=== PATIENT | male | born 1955 | race Caucasian/White ===

== ENCOUNTER 2022-06-08 09:20 | Outpatient (CLI) | payer MEDICARE, SELFPAY ==
--- NOTE | 2022-06-08 09:38 | ECG_ITS ---
Measurements Intervals [place] Rate: 58 P: 10 HI: 174 QRS: -35 QRSD: 122 T: -7 QT: 393 QTc: 389 Interpretive Statements SINUS BRADYCARDIA MARKED LEFT AXIS DEVIATION [QRS AXIS < -30] MODERATE INTRAVENTRICULAR CONDUCTION DELAY [110+ ms QRS DURATION] MINIMAL VOLTAGE CRITERIA FOR LVH, CONSIDER NORMAL VARIANT [MEETS CRITERIA IN ONE OF: R(aVL), S(V1), R(V5), R(V5/V6)+S(V1)] BASELINE ARTIFACT PRESENT NO PREVIOUS ECG AVAILABLE FOR COMPARISON Electronically Signed On 06-08-2022 11:57:35 CDT by Jean-Pierre Bowie M.D.
[2022-06-08 10:16] LABS: Anion Gap 6 mmol/L (8-16); Blood Urea Nitrogen 17 mg/dL (9-20); Carbon Dioxide 32 mmol/L (22-30); Chloride 100 mmol/L (98-107); Estimated Glomerular Filt Rate > 60; Glucose 143 mg/dL (65-110); Potassium 4.2 mmol/L (3.4-5.0); Sodium 138 mmol/L (137-145)
== END 2022-06-08 09:21 | disposition home or self-care (01) ==
LOC: ANHSURGERY 09:25
PROVIDERS: Anesthesiology; PCP Internal Medicine; Visit Provider Surgery
DX: K42.9 Umbilical hernia without obstruction or gangrene (principal); E11.9 Type 2 diabetes mellitus without complications; I10 Essential (primary) hypertension
CPT/HCPCS: 36415; 80048; 86850; 86900; 86901; 93005

== ENCOUNTER 2022-06-12 02:26 | Day surgery (SDC) | payer MEDICARE, SELFPAY ==
[2022-06-07 08:23] VITALS: BMI 38.3
--- NOTE | 2022-06-07 08:35 | PC.NURSE ---
PRE-OP INSTRUCTION, PLEASE READ CAREFULLY Report to the Outpatient Waiting Room, entrance under the green pavilion located off [facility], at time _1000_ on date _06/12/22_. Planned Procedure Time: _1200_. Time changes happen often and if your time is changed the preop area will call you the afternoon before. - You and your visitor will be asked to self-screen and do not enter if you have any COVID symptoms. - A mask is optional within the hospital at this time. Patients may have clear liquids (water, carbonated beverages, clear teas, apple juice) until 3 hours prior to surgery (0900 AM) with a maximum of 20 ounces. - No food from midnight until time of surgery Take the following medications with a SIP of water the morning of surgery: _ATENOLOL_ DO NOT STOP ANY OF YOUR OTHER PRESCRIPTION MEDICATIONS PRIOR TO SURGERY ?EXCEPT THE FOLLOWING Medications to discontinue per ANESTHESIA - _MULTIVITAMIN 3 DAYS PRIOR TO SURGERY, Date to take last dose 06/08/22_ Please no make-up, nail danish, hairspray, perfume, deodorant, or body powder the day of surgery. No jewelry (including any body piercings) or valuables the day of surgery, leave them at home. Please take a shower or bath the night before, or the morning of, surgery with an antibacterial soap (HIBICLENS). Wear comfortable, loose fitting clothing. Children are encouraged to wear pajamas. - Jewelry must be removed prior to entering the operating room. Rings and piercings that are not removed may be cut off. - The hospital will not accept responsibility for valuables. - Please leave all valuables, including medications, at home the day of surgery. If you are going home after surgery, a licensed test driver must drive you home. - NO public transportation without another adult if you receive anesthesia. - We recommend that an adult stay with you for 24 hours following discharge. - We also recommend that you do not drive, make important decision, drink alcoholic beverages, or take any drugs that were not prescribed by your health care provider for at least 24 hours after your discharge time. Follow any additional instructions given to you from your surgeon. If you or anyone in your household have experienced Covid symptoms in the past week, please notify your surgeon or the nurse liaison at the phone number below for possible testing. Telephone instructions given to _PATIENT_and asked if any additional questions and then verbalized understanding. Patient advised to call surgeon office or pre surgery nurse liaison [phone] if any additional questions.
[2022-06-12] VITALS (10 sets, daily range): BP systolic 114–167; BP diastolic 55–88; PULSE 45–78; RESP 12–19; TEMP 36–36.8; O2SAT 92–100
[2022-06-12] MEDS: ACETAMINOPHEN 500 MG TABLET 1000 MG PO (10:40)
[2022-06-12] MEDS: LACTATED RINGERS 1,000 ML 30 ML IV CONT ×2 (10:53→13:51)
[2022-06-12 10:54] LABS: Glucose Point of Care 170 mg/dl (65-105)
[2022-06-12] MEDS: KETOROLAC 15 MG/ML VIAL (*BKC) IV PUSH (10:54)
--- NOTE | 2022-06-12 11:25 | WPDANESEPPF ---
Anes - Initial Pre Proc Eval Procedure: Operation Date: 06/12/22 12:00 Proposed Procedures p Robotic Laparoscopic Umbilical Hernia Repair with Mesh - Gavin Leija MD Date/Time: 06/12/22 11:25 Surgeon: Gavin Leija MD Pre Op Diagnosis: umbilical hernia Patient Data Age: 66 Gender: M Height: 1.85 m Weight: 134.6 kg Last Vital Signs Temp 96.8 F L 06/12/22 10:03 Pulse 58 L 06/12/22 10:03 Resp 16 06/12/22 10:03 BP 167/88 H 06/12/22 10:03 Pulse Ox 100 06/12/22 10:03 O2 Del Method Room Air 06/12/22 10:03 Allergies Allergy/AdvReac Type Severity Reaction Status Date / Time No Known Allergies Allergy Unknown Verified 06/12/22 10:35 Home Medications Medication Instructions Recorded Confirmed Type amlodipine 5 mg-olmesartan 40 mg 1 tablet PO DAILY 10/08/19 06/12/22 History tablet atenolol 50 mg tablet 50 mg PO DAILY 10/08/19 06/12/22 History chlorthalidone 25 mg tablet 25 mg PO EVERY OTHER DAY 10/08/19 06/12/22 History cholecalciferol (vitamin D3) 25 25 mcg PO DAILY 10/08/19 06/12/22 History mcg (1,000 unit) capsule multivitamin (One-A-Day Essential 1 tablet PO DAILY 10/08/19 06/12/22 History tablet) rosuvastatin 20 mg tablet 20 mg PO EVERY OTHER DAY 10/08/19 06/12/22 History metformin 500 mg tablet,extended 1,500 mg PO BID 06/07/22 06/12/22 History release 24 hr Laboratory Tests 06/12/22 10:51 POC Capillary Glucose 170 H mg/dl (65-105) Patient hx anesthesia problems: none Family hx anesthesia problems: none Results Review: All pre-operative results and documents have been reviewed as part of the pre-operative evaluation. [facility] Past Medical History Medical History (Updated 05/18/22 @ 10:01 by Tiffani Brandon) Diabetes Hyperlipidemia Hypertension Prostate cancer Surgical History Surgical History H/O shoulder surgery History of surgery on lower extremity S/P TURP Family History Family History Other Diabetes mellitus Heart disease Hypertension Social History Social History Smoking packs per day: 2 Smoking cigarettes per day: 40.0 Years smoked: 34 Smoking pack-years: 68.00 Smoking status: Former smoker Tobacco type: cigarettes Second hand tobacco smoke exposure: No Smoking end date: 02/12/03 Alcohol intake: current Drinks per week: 8 Substance use: never Substance use type: does not use Living arrangements: with family Spiritual care concerns: No Anes - Eval Final PreProcedure Day of Procedure 06/12/22 11:25 Patient weight: morbidly obese Heart: regular rate and rhythm Lungs: clear to auscultation Airway: Mallampati scale class III Neurological: alert and oriented Last oral intake: >/= 8 hours ASA classification: III Emergent: no Anesthetic plan: proceed Anesthesia type and monitoring: general ETT and standard monitoring Results Review: All pre-operative results and documents have been reviewed as part of the pre-operative evaluation. Informed Consent: The patient's anesthetic plan and its attendant risks and benefits were discussed with the patient/family/POA. Questions were solicited and answers provided to the satisfaction of the patient/family/POA.
--- NOTE | 2022-06-12 11:49 | WPDHPUPDATE1 ---
History and Physical Update Update Date/Time: 06/12/22 11:49 History and Physical has been reviewed, including an updated exam of the patient. There are NO changes in the patient's condition. Risks, benefits, and alternatives have been discussed and questions answered. Patient agrees to proceed with procedure.
[2022-06-12] MEDS: ceFAZolin 3 GM/D5W 100 ML 100 ML IVPB (11:57)
[2022-06-12] MEDS: BUPIVACAINE/EPINEPHRINE 0.5% 50 ML VIAL 30 ML INFILTRATE (13:13)
--- NOTE | 2022-06-12 13:57 | W.PM.PROC2 ---
Procedure Note - Detailed Date of Procedure 06/12/22 Pre-op Diagnosis umbilical hernia Post-op Diagnosis Other (Umbilical and ventral hernia) Procedure Performed Robotic laparoscopic repair 8 cm ventral hernia with Ventralight ST mesh Surgeon Gavin Leija MD Dip Stand Loader Eleazar ALVAREZ Anesthesia General and Local (0.5% Marcaine with epinephrine) Indications Patient has a symptomatic reducible umbilical hernia. He has a a lower midline abdominal scar from previous prostatectomy. No hernias were appreciated from the prostatectomy. He is taken to surgery now for robotic laparoscopic repair of the umbilical hernia estimated to have a 2 cm defect. Findings The umbilical hernia did have a 2 cm defect. However, there was an additional 1 cm defect 5 cm from the lower margin of the umbilical hernia defect. Both defects were repaired leading to an 8 cm ventral hernia repair with mesh Description of Procedure Patient was taken to surgery and induced into general anesthesia. A bump was placed under the left hip and lower back so that the patient was slightly elevated on his left side. The left arm was tucked at the left side. The abdomen was prepped and draped. Local anesthesia was looked infiltrated under the more lateral aspect of the left costal margin. An applied [employer] optical 5 mm port was then placed there under direct visualization. The abdominal cavity was insufflated. With the camera in position we were able to visualize the umbilical hernia. A robotic 8 mm port was then placed in the left lower quadrant. Another 8 mm robotic port was placed for the camera a bit more laterally in the left mid abdomen. Finally, the camera position was changed and the 5 mm initial trocar was replaced with another 8 mm robotic port. Robot was then brought into the field and the camera arm was docked and targeted. We then docked the to operating arms and positioned them appropriately. The surgeon went to the console. The hernia defect was easily seen. Some of the properitoneal fat and peritoneum in the hernia defect was then dissected and removed from the defect. I then freed up some of the properitoneal fat caudal to the umbilical defect. As I was peeling this off the anterior abdominal wall, I found a 2nd ventral hernia. This was a 1 cm defect just to the left of midline and 5 cm caudal from the lower edge of the umbilical hernia defect. Fatty tissue within this defect was removed. Some additional properitoneal fat was removed so that this area could be covered well with mesh. I then went to the upper margin of the hernia defect and freed the falciform ligament and properitoneal fat extending caudad from it so that there was exposed fascia cephalad to the hernia defect. Hemostasis was maintained with the cautery. An 0 V lock suture was then introduced. The umbilical hernia was closed in longitudinal fashion as it was longer than it was wide. Multiple sutures were used to close it securely. After cutting this V lock suture, there was extra suture left. I used this suture to close the 1 cm hernia defect tying it after it was closed. This was a [id number] mattress suture. A 10 x 15 cm piece of Ventralight ST mesh was then introduced into the abdominal cavity. A 2 0 V lock suture was then used to secure the center of the mesh anterior abdominal wall and then also used to secure the left lateral side of the mesh to the anterior abdominal wall so that it would not obscure my view. Another 2 0 V lock was introduced. Starting on the patient's right side, a running suture was used to secure the mesh to the anterior abdominal wall. To more to OB locks were required as we continued circumferentially around the mesh suturing it to the undersurface of the anterior abdominal wall. When the mesh and then sutured securely, there was some extra 2 0 V lock which I used to run from cephalad to caudad along the length of the mesh to about the level of the repair furthe
[2022-06-12] MEDS: fentaNYL CITRATE INJ (*CRX) 100 MCG/2 ML VIAL 25 MCG IV PUSH (14:34)
[2022-06-12 14:47] LABS: Glucose Point of Care 181 mg/dl (65-105)
[2022-06-12] MEDS: oxyCODONE HCL (*CRX) 5 MG TAB IR PO (15:03)
== END 2022-06-12 16:02 | disposition home or self-care (01) ==
PROVIDERS: PCP Internal Medicine; Visit Provider Surgery
PROC: (CPT 49593; principal; 2022-06-12 12:00)
DX: K42.9 Umbilical hernia without obstruction or gangrene (principal); K43.9 Ventral hernia without obstruction or gangrene; E11.9 Type 2 diabetes mellitus without complications; I10 Essential (primary) hypertension; E78.5 Hyperlipidemia, unspecified; Z79.84 Long term (current) use of oral hypoglycemic drugs; Z85.46 Personal history of malignant neoplasm of prostate; Z87.891 Personal history of nicotine dependence; E66.01 Morbid (severe) obesity due to excess calories; Z68.39 Body mass index [BMI] 39.0-39.9, adult
CPT/HCPCS: 49593; S2900; 82948; A9270; C1781; J0690; J1100; J1170; J1885; J2250; J2405; J2704; J3010; J7120